=== PATIENT | male | born 1935 | race Caucasian/White ===

== ENCOUNTER 2021-09-15 07:45 | Day surgery (SDC) | payer MEDICARE, OTHER ==
[~2021-09-15] VITALS: Ht 175.3 cm; Wt 81.3 kg
[2021-09-15 08:00] VITALS: BP 155/89
[2021-09-15] MEDS ORDERED: RAMI5CAP65 PO (08:14)
[2021-09-15] MEDS ORDERED: IPRA4AER IH (08:14)
[2021-09-15] MEDS ORDERED: FINA5TAB11 PO (08:15)
[2021-09-15] MEDS ORDERED: NITR0.4T51 SL (08:15)
[2021-09-15] MEDS ORDERED: POTA2TAB17 PO (08:17)
[2021-09-15] MEDS ORDERED: ASPI-1264 PO (08:17)
[2021-09-15] MEDS ORDERED: OMEG-79 PO (08:19)
[2021-09-15] MEDS ORDERED: MULT-1085 PO (08:20)
[2021-09-15] MEDS ORDERED: GLUC100017 PO (08:21)
[2021-09-15] MEDS ORDERED: MIDAZolam 1 MG/ML 5ML VIAL ONE (08:45)
[2021-09-15] MEDS ORDERED: fentaNYL/PF 50MCG/1 ML 2ML syringe ONE (08:45)
[2021-09-15 09:43] VITALS: BP 142/90
[2021-09-15 09:53] VITALS: BP 138/75
[2021-09-15 10:03] VITALS: BP 134/69
[2021-09-15 10:13] VITALS: BP 141/71
== END 2021-09-15 10:20 | disposition home or self-care (01) ==
LOC: GI LAB 07:45
PROVIDERS: ATTEND Internal Medicine Gastroenterology
DX: Z12.11 Encounter for screening for malignant neoplasm of colon (principal); K57.30 Diverticulosis of large intestine without perforation or abscess without bleeding; I10 Essential (primary) hypertension; I25.2 Old myocardial infarction; J44.9 Chronic obstructive pulmonary disease, unspecified; Z86.010 Personal history of colon polyps; Z99.81 Dependence on supplemental oxygen; Z87.891 Personal history of nicotine dependence; Z79.82 Long term (current) use of aspirin; Z79.899 Other long term (current) drug therapy; Z80.0 Family history of malignant neoplasm of digestive organs
CPT/HCPCS: G0105; G0500; J2250; J3010; J7040; Z7512; 45378; 99152; 99153; A4620

== ENCOUNTER 2023-02-10 08:04 | Outpatient (CLI) | payer MEDICARE, OTHER ==
[~2023-02-10] VITALS: Ht 170.2 cm; Wt 81.6 kg
[~2023-02-10 08:04] MED LIST: ASPI-1264 PO; FINA5TAB11 PO; GLUC100017 PO; IPRA4AER IH; MULT-1085 PO; NITR0.4T51 SL; OMEG-79 PO; POTA2TAB17 PO; RAMI5CAP65 PO
[2023-02-10 08:50] LABS: TOTAL HEMOGLOBIN 13.7 G/dl (14.0-17.9)
[2023-02-10] MEDS ORDERED: albuterol 2.5 MG/3 ML nebule NEB PRN (09:25)
== END 2023-02-10 23:59 | disposition home or self-care (01) ==
LOC: RT 08:04
PROVIDERS: ATTEND Internal Medicine Pulmonary Disease
DX: R94.2 Abnormal results of pulmonary function studies (principal); J44.9 Chronic obstructive pulmonary disease, unspecified
CPT/HCPCS: 85018; 94060; 94727; 94729; 94760